=== PATIENT | female | born 1945 | race Caucasian/White ===

== ENCOUNTER → 2017-02-12 | Day surgery (SDC) | payer MEDICARE, OTHER ==
[~2017-02-12] VITALS: Ht 154.3 cm; Wt 72.5 kg
[~2017-02-12] MED LIST: ATOR40TA16 PO; CHLORHEXIDINE GLUCONATE 2 % 1 PACK (2 CLOTHS) TOPICAL PRN; EPINEPHrine HCL PF/SF (1:1000) 1 MG/ML AMP I-OCULAR ONE; ESTR42.5V VAGINAL; HYALURONIDASE/LIDOCAINE/BUPIVACAINE 5 ML SYR RIGHT EYE ONE; INSULIN HUMAN REGULAR 1,000 UNITS/10 ML VIAL SQ PRN; LACTATED RINGER'S 1000 ML IV PRN; LISI20TA3 PO; METF500T PO; METOPROLOL TARTRATE 25 MG TAB PO PRN; POVIDONE IODINE 5% (ANTISEPSIS KIT) 4 APPLICATIONS EACH NARE PRN; PROPOFOL 200 MG/20 ML AMP ONE; SITA1TAB2 PO; SODIUM CHLORID 0.9% 500 ML IV PRN; TOBRAMYCIN/DEXAMETHASONE OPTH OINT 3.5 GM TUBE ONE; VISCOAT OPHT IRRIG SOLN 0.75 ML SYRINGE ONE
[2017-02-12 07:30] VITALS: PULSE 73
[2017-02-12] MEDS: TROPICAMIDE 1% OPHT SOLN 15 ML BTL RIGHT EYE SCH ×3 (07:30→07:40)
[2017-02-12] MEDS: CYCLOPENTOLATE HCL 1% OPHT SOLN 2 ML BTL RIGHT EYE SCH ×3 (07:30→07:40)
[2017-02-12] MEDS: PHENYLEPHRINE HCL 10% OPTH SOLN 5 ML BTL RIGHT EYE SCH ×3 (07:30→07:40)
[2017-02-12] MEDS: TETRACAINE 0.5% OPTH SOLN 4 ML BTL RIGHT EYE SCH ×3 (07:30→07:40)
[2017-02-12 08:30] VITALS: PULSE 63
--- NOTE | 2017-02-12 09:34 | PD.OP ---
Operative Report Date of Surgery: Feb 12, 2017 Preoperative Diagnosis: (1) Nuclear sclerotic cataract of right eye Postoperative Diagnosis: (1) Pseudophakia of right eye Procedure: phacoemulsification and intraocular lens implant right eye Anesthesia: RBB, MAC Surgeon: Marilu Rincon Gem Expert(s): none Operation and Findings: Patient was consented for surgery, given a retrobulbar block by anesthesia, and taken back to the operating room. She was prepped and draped in the usual sterile fashion for ophthalmic surgery. A wire lid speculum was placed in the right eye. A paracentesis incision was created at the 11 o'clock position on the limbus. Vision blue dye and viscoelastic was injected into the anterior chamber. The main incision was created at the 8 o'clock position on the limbus with a 2.4 mm keratome. A continuous curvilinear capsulorrhexis was made on the anterior lens capsule. Hydrodissection was used to separate the lens from the capsule. Phacoemulsification was used to remove the lens nucleus material. Irrigation and aspiration was used to remove the remaining cortical material. The lens implant ([id number] [id number] SN [id number]) was placed in the capsular bag. Viscoelastic was removed with irrigation and aspiration. The incisions were irrigated and found to be watertight. Tobradex ointment, a patch, and shield were placed on the right eye. The patient was sent to PACU in stable condition. Marilu Rincon MD Feb 12, 2017 09:34
[2017-02-12 10:10] VITALS: BP 135/72; PULSE 89; RESP 16; TEMP 98; O2SAT 100
== END | disposition home or self-care (01) ==
LOC: PHSDC 06:45
PROVIDERS: ATTEND Ophthalmology
DX: H25.11 Age-related nuclear cataract, right eye (principal)
CPT/HCPCS: 00142; 66984; J0171; J7040; V2632

== ENCOUNTER → 2017-03-19 | Day surgery (SDC) | payer MEDICARE, OTHER ==
[~2017-03-19] VITALS: Ht 160 cm; Wt 73.0 kg
[~2017-03-19] MED LIST changes: +ACETYLCHOLINE CHL OPHT SOLN 1:100 2 ML VIAL ONE; +ASPI81TA23 PO; +HYALURONIDASE/LIDOCAINE/BUPIVACAINE 5 ML SYR ONE; -HYALURONIDASE/LIDOCAINE/BUPIVACAINE 5 ML SYR RIGHT EYE ONE; +HYALURONIDASE/LIDOCAINE/EPINEPHRINE/BUPIVACAINE 4.5 ML SYR LEFT EYE ONE; +HYALURONIDASE/LIDOCAINE/EPINEPHRINE/BUPIVACAINE 6 ML SYR LEFT EYE ONE; -INSULIN HUMAN REGULAR 1,000 UNITS/10 ML VIAL SQ PRN; +acetaZOLAMIDE SEQUELS 500 MG SUSTAINED RELEASE CAP ONE; +acetaZOLAMIDE SEQUELS 500 MG SUSTAINED RELEASE CAP PO ONE
[2017-03-19] MEDS: TROPICAMIDE 1% OPHT SOLN 15 ML BTL LEFT EYE SCH ×3 (09:24→09:34)
[2017-03-19] MEDS: PHENYLEPHRINE HCL 10% OPTH SOLN 5 ML BTL LEFT EYE SCH ×3 (09:24→09:34)
[2017-03-19] MEDS: TETRACAINE 0.5% OPTH SOLN 4 ML BTL LEFT EYE SCH ×3 (09:24→09:34)
[2017-03-19] MEDS: CYCLOPENTOLATE HCL 1% OPHT SOLN 2 ML BTL LEFT EYE SCH ×3 (09:24→09:34)
[2017-03-19 09:25] VITALS: PULSE 75
[2017-03-19 10:03] VITALS: PULSE 65
[2017-03-19 11:15] VITALS: TEMP 97.9
[2017-03-19 12:03] VITALS: BP 127/90; PULSE 78; RESP 14; O2SAT 96
--- NOTE | 2017-03-19 21:13 | PD.OP ---
Operative Report Date of Surgery: Mar 19, 2017 Preoperative Diagnosis: (1) Nuclear sclerotic cataract of left eye Postoperative Diagnosis: (1) Pseudophakia of left eye Procedure: phacoemulsification and intraocular lens implant left eye Anesthesia: MAC, retrobulbar block Surgeon: Marilu Rincon Spray Drier(s): none Operation and Findings: Patient was consented for surgery, given a retrobulbar block by anesthesia, and taken back to the operating room. She was prepped and draped in the usual sterile fashion for ophthalmic surgery. A wire lid speculum was placed in the left eye. A paracentesis incision was created at the 5 o'clock position on the limbus. Vision blue dye and viscoelastic was injected into the anterior chamber. The main incision was created at the 2 o'clock position on the limbus with a 2.4 mm keratome. A continuous curvilinear capsulorrhexis was made on the anterior lens capsule. Hydrodissection was used to separate the lens from the capsule. Phacoemulsification was used to remove the lens nucleus material. Irrigation and aspiration was used to remove the remaining cortical material. A small posterior rent was noted. The lens implant ([id number]) was placed in the capsular bag. Viscoelastic was removed with irrigation and aspiration. The incisions were irrigated and found to be watertight. 10-0 nylon suture was placed on the main incision. Tobradex ointment, a patch, and shield were placed on the left eye. The patient was sent to PACU in stable condition. Marilu Rincon MD Mar 19, 2017 21:13
== END | disposition home or self-care (01) ==
LOC: PHSDC 08:28
PROVIDERS: ATTEND Ophthalmology
DX: H25.12 Age-related nuclear cataract, left eye (principal)
CPT/HCPCS: 00142; 66984; J0171; J7040; V2632